=== PATIENT | male | born 1980 | race Two or more races ===

== ENCOUNTER 2017-03-21 11:48 | Emergency (ER) | payer MEDICARE, MEDICAID ==
[2017-03-21 11:57] VITALS: BP 119/78
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
--- NOTE | 2017-03-22 17:47 | CR ---
Chest: Two views of the chest were obtained. Comparison: Prior chest x-ray of 09/03/14. Heart size and mediastinum are normal. Lungs are clear. Scoliosis is present within the spine. Impression: 1. Nothing acute is seen on two-view chest x-ray. Diagnostic code #2
== END 2017-03-21 13:10 | disposition home or self-care (01) ==
LOC: JD.ED 11:48
DX: T17.320A Food in larynx causing asphyxiation, initial encounter (principal); Z79.899 Other long term (current) drug therapy; Z87.820 Personal history of traumatic brain injury
CPT/HCPCS: 71046; 71046-26; 99283; 99284